=== PATIENT | female | born 1955 | race Caucasian/White ===

== ENCOUNTER 2020-12-04 16:23 | Emergency (ER) | payer MEDICARE ==
[~2020-12-04] VITALS: Ht 157.5 cm; Wt 63.6 kg
[2020-12-04 17:26] LABS: BASO # 0.03 (0.02-0.10); EOS # 0.15 (0.04-0.40); EOS % 1.6 % (1.0-5.0); HEMATOCRIT 40.3 % (37.0-47.0); HEMOGLOBIN 13.2 g/dL (12.5-16.0); LYMPH# 1.36 (1.50-4.00); MEAN CELL VOLUME 93 fl (78-100); MEAN CORPUSCULAR HEMOGLOBIN 30 pg (27-31); MEAN CORPUSCULAR HGB CONC 33 g/dL (33-37); MEAN PLATELET VOLUME 8.9 fl (7.4-10.4); MONO # 0.84 (0.20-0.80); NEU # 7.15 (1.40-6.50); PLATELET COUNT 311 K/mm3 (130-400); RED BLOOD COUNT 4.35 M/mm3 (4.10-5.30); RED CELL DISTRIBUTION WIDTH 12.1 % (11.5-14.5); WHITE BLOOD COUNT 9.5 K/mm3 (4.8-10.8)
[2020-12-04 17:38] LABS: CALCIUM 9.6 mg/dL (8.3-10.5)
[2020-12-04 20:20] VITALS: BP 145/93
== END 2020-12-04 20:20 | disposition home or self-care (01) ==
LOC: ED 16:23
PROVIDERS: Family Medicine
DX: L02.612 Cutaneous abscess of left foot (principal)
CPT/HCPCS: 90715; J1956